=== PATIENT | male | born 1945 | race African-American/Black ===

== ENCOUNTER → 2018-01-24 | Outpatient (CLI) | payer OTHER ==
[~2018-01-24] MED LIST: HCTZ; NIFEDIPINE; PROTONIX40 MG PO; ZOCOR
--- NOTE | ~2018-01-24 | 2DMMODE ---
[facility] [place] [address] 2 D/M-MODE ECHOCARDIOGRAM Name: NIKOSNICOLA LOFTON Room #: REG CL [facility]#: [id number] Admission: 01/24/18 Attend Phys: Becca Heredia DNP Discharge: Date of : 45 Date of Service: 01/24/18 1146 Report #: [id number] THIS REPORT FOR: //name// APPROVED REPORT Study performed: 01/24/2018 09:17:59 EXAM: Comprehensive 2D, Doppler, and color-flow Echocardiogram Patient Location: Out-Patient Status: routine BSA: 2.06 HR: 58 bpm BP: 155/77 mmHg Rhythm: NSR Other Information Study Quality: Good Indications Murmur HTN 2D Dimensions IVSd: 13.80 (7-11mm) LVOT Diam: 21.90 (18-24mm) LVDd: 43.71 mm PWd: 14.22 (7-11mm) Ascending Ao: 29.55 (22-36mm) LVDs: 19.68 (25-40mm) Aortic Root: 30.67 mm Volumes Left Atrial Volume (Systole) Single Plane 4CH: 51.48 mL Single Plane 2CH: 52.44 mL LA ESV Index: 27.00 mL/m2 Aortic Valve AoV Peak Itz.: 3.18 m/s AO Peak Gr.: 40.50 mmHg LVOT Max P.11 mmHg AO Mean Gr.: 20.95 mmHg AO V2 Mean: 2.11 m/s LVOT Max V: 1.24 m/s AO V2 VTI: 65.34 cm KANDICE Vmax: 1.46 cm2 Mitral Valve E/A Ratio: 1.1 [facility] [place] [address] 2 D/M-MODE ECHOCARDIOGRAM Name: NICOLA KNOTT Room #: REG [facility]#: [id number] Admission: 01/24/18 Attend Phys: Becca Heredia DNP Discharge: Date of : 45 Date of Service: 01/24/18 1146 Report #: [id number] MV Decel. Time: 329.75 ms MV E Max Itz.: 0.97 m/s MV A Itz.: 0.87 m/s MV PHT: 95.63 ms IVRT: 87.66 ms Pulmonary Valve PV Peak Itz.: 1.01 m/s PV Peak Gr.: 4.08 mmHg Tricuspid Valve RAP Estimate: 5.00 mmHg Left Ventricle The left ventricle is normal size. There is normal LV segmental wall motion. Mild to moderate concentric left ventricular hypertrophy. The left ventricular systolic function is normal. LVEF is 65-70%. Grade II - pseudonormal filling dynamics. Right Ventricle The right ventricle is normal size. The right ventricular systolic function is normal. Atria The left atrium size is normal. The right atrium size is normal. Aortic Valve Aortic valve is moderately calcified. No aortic regurgitation is present. There is mild to moderate valvular aortic stenosis. Calculated aortic valve area is 1.5 cm2 with maximum pressure gradient of 41 mmHg and mean pressure gradient of 21 mmHg. Mitral Valve The mitral valve is normal in structure. Trace mitral regurgitation. No evidence of mitral valve stenosis. Tricuspid Valve The tricuspid valve is normal in structure. There is no tricuspid valve regurgitation noted. Unable to assess PA pressure. Pulmonic Valve The pulmonary valve is normal in structure. Trace pulmonic regurgitation. Great Vessels The aortic root is normal in size. The ascending aorta is normal in [facility] [address] [place] [address] 2 D/M-MODE ECHOCARDIOGRAM Name: NICOLA KNOTT Room #: REG CL [facility].#: [id number] Admission: 01/24/18 Attend Phys: Becca Heredia DNP Discharge: Date of : 45 Date of Service: 01/24/18 1146 Report #: [id number] size. IVC is normal in size and collapses >50% with inspiration. Pericardium There is no pericardial effusion. <Conclusion> The left ventricle is normal size. Mild to moderate concentric left ventricular hypertrophy. The left ventricular systolic function is normal. Grade II - pseudonormal filling dynamics. The right ventricle is normal size. The left atrium size is normal. There is mild to moderate valvular aortic stenosis. Trace mitral regurgitation. There is no tricuspid valve regurgitation noted. <ELECTRONICALLY SIGNED> By: Kodak Breen MD 01/24/18 1146 1146 1146 Kodak Breen MD /INF
== END ==
LOC: CV 09:03
DX: I51.7 Cardiomegaly (principal)

== ENCOUNTER 2018-04-24 18:34 | Inpatient (IN) | payer OTHER ==
[~2018-04-24] VITALS: Ht 170.2 cm; Wt 104.6 kg
[2018-04-24 18:34] VITALS: BP 147/82
[~2018-04-24 18:34] MED LIST changes: -HCTZ; +HYDROCHLOROTHIA25 M2 PO; -NIFEDIPINE; +PROCARDIA XL60 MG PO; -ZOCOR; +ZOCOR20 MG PO
[2018-04-24 19:59] LABS: ABSOLUTE NEUTROPHILS 10.3 thou/uL (1.4-8.2); BASOPHILS 0.5 % (0.0-2.0); EOSINOPHILS 0.1 % (0.0-3.0); HEMATOCRIT 50.2 % (42.0-52.0); HEMOGLOBIN 17.3 gm/dL (14.0-18.0); LYMPHOCYTES 7.1 % (24.0-44.0); MCH 27.7 pg (26.0-34.0); MCHC 34.4 g/dL (28.0-37.0); MCV 80.3 fL (80.0-100.0); MONOCYTES 5.5 % (1.0-8.0); PLATELET COUNT 256 thou/uL (150-400); POLYS 86.8 % (36.0-66.0); RBC 6.25 mil/uL (4.50-6.00); RDW 14.9 % (10.5-14.5); WBC 11.9 thou/uL (4.0-11.0)
[2018-04-24 20:07] LABS: CALCIUM 8.6 mg/dL (8.5-10.1); CREATININE 1.4 mg/dL (0.7-1.3)
[2018-04-24 20:10] LABS: POTASSIUM 2.9 mmol/L (3.5-5.1)
[2018-04-24 20:13] LABS: ALBUMIN 3.8 g/dL (3.4-5.0); TOTAL BILIRUBIN 0.4 mg/dL (<0.1-1.0); TOTAL PROTEIN 7.9 g/dL (6.4-8.2)
[2018-04-24 20:16] LABS: URINE CLARITY CLEAR; URINE COLOR YELLOW; URINE PROTEIN (DIPSTICK) NEGATIVE (Negative); URINE SPECIFIC GRAVITY 1.025 (1.005-1.035)
[2018-04-24 20:17] LABS: URINE BILIRUBIN NEGATIVE (Negative); URINE BLOOD TRACE (Negative); URINE GLUCOSE-RANDOM* NEGATIVE (Negative); URINE KETONES NEGATIVE (Negative); URINE LEUKOCYTES-REFLEX NEGATIVE (Negative); URINE NITRITE-REFLEX NEGATIVE (Negative); URINE UROBILINOGEN 0.2 E.U./dl (0.2-1.0)
[2018-04-24 22:27] VITALS: BP 147/76
[2018-04-24 22:34] VITALS: BP 147/77
[2018-04-24] MEDS ORDERED: FLOMAX0.4 MG PO (23:01)
[2018-04-24] MEDS ORDERED: POTASSIUM20 PO (23:05)
[2018-04-24] MEDS ORDERED: OMEGA-31000 M1 PO (23:07)
[2018-04-25 04:03] LABS: CREATININE 1.1 mg/dL (0.7-1.3)
[2018-04-25 04:18] LABS: ALBUMIN 3.3 g/dL (3.4-5.0); DIRECT BILIRUBIN 0.1 mg/dL (<0.1-0.3); TOTAL BILIRUBIN 0.5 mg/dL (<0.1-1.0); TOTAL PROTEIN 6.5 g/dL (6.4-8.2)
[2018-04-25 04:40] LABS: POTASSIUM 2.9 mmol/L (3.5-5.1)
[2018-04-25 05:13] VITALS: BP 145/79
[2018-04-25 06:49] VITALS: BP 131/71
--- NOTE | 2018-04-25 10:05 | EKG ---
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 : 1945 Requested By: Cody Bautista Order Number: [id number] MD: Manan Hurtado Measurements Intervals [place] Rate: 106 P: -55 NM: 160 QRS: -15 QRSD: 150 T: -16 QT: 370 QTc: 492 Interpretive Statements Sinus tachycardia Right bundle branch block Compared to ECG 09/03/2010 05:05:10 No significant change was found Electronically Signed On 04-25-2018 10:05:13 SALES REPRESENTATIVE SUPERVISOR by Manan Hurtado [email or web address] <ELECTRONICALLY SIGNED> By: Manan Hurtado MD, MERGED WITH [facility] 04/25/18 1005 00 00 Manan Hurtado MD, FACC /EPI
[2018-04-25 10:58] VITALS: BP 124/72
[2018-04-25 16:15] VITALS: BP 135/67
[2018-04-25 20:59] VITALS: BP 135/60
[2018-04-26 04:04] LABS: ALBUMIN 3.2 g/dL (3.4-5.0); CALCIUM 8.3 mg/dL (8.5-10.1); CREATININE 1.1 mg/dL (0.7-1.3); PHOSPHORUS 3.3 mg/dL (2.5-4.9); POTASSIUM 3.5 mmol/L (3.5-5.1)
[2018-04-26 08:02] VITALS: BP 124/68
[2018-04-26 10:21] VITALS: BP 124/68
[2018-04-26 10:26] VITALS: BP 124/68
== END 2018-04-26 10:10 | disposition home or self-care (01) | DRG 682 ==
LOC: ER 18:34 → 2N 19:59 → EROBS 19:59 → 2N 22:14
PROVIDERS: Emergency Medicine; Nurse Practitioner Acute Care; ADMIT Hospitalist
DX: N17.9 Acute kidney failure, unspecified (principal); E43 Unspecified severe protein-calorie malnutrition; R65.10 Systemic inflammatory response syndrome (SIRS) of non-infectious origin without acute organ dysfunction; K52.9 Noninfective gastroenteritis and colitis, unspecified; I10 Essential (primary) hypertension; E87.6 Hypokalemia; E78.00 Pure hypercholesterolemia, unspecified; Z79.899 Other long term (current) drug therapy; Z82.49 Family history of ischemic heart disease and other diseases of the circulatory system; Z83.3 Family history of diabetes mellitus
CPT/HCPCS: 10081

== ENCOUNTER 2019-10-08 08:00 | Emergency (ER) | payer OTHER ==
[~2019-10-08] VITALS: Ht 167.6 cm; Wt 102.1 kg
[~2019-10-08 08:00] MED LIST changes: +FLOMAX0.4 MG PO; +OMEGA-31000 M1 PO; +POTASSIUM20 PO
[2019-10-08] MEDS ORDERED: METFORMIN HCL500 MG PO (08:18)
[2019-10-08] MEDS ORDERED: LOSARTAN POTAS100 MG PO (08:19)
[2019-10-08] MEDS ORDERED: LOPRESSOR50 MG PO (08:19)
[2019-10-08 09:01] LABS: ANION GAP 6 mmol/L (7-16); BUN 15 mg/dL (7-18); CHLORIDE 104 mmol/L (98-107); CO2 29 mmol/L (21-32); CREATININE 1.2 mg/dL (0.7-1.3); GLUCOSE 138 mg/dL (74-106); SODIUM 139 mmol/L (136-145)
[2019-10-08 09:02] LABS: POTASSIUM 3.5 mmol/L (3.5-5.1)
[2019-10-08 09:09] LABS: TROPONIN-I <0.06 ng/mL (<0.06)
[2019-10-08 09:48] LABS: ABSOLUTE NEUTROPHILS 5.2 thou/uL (1.4-8.2); EOSINOPHILS 2.6 % (0.0-3.0); HEMATOCRIT 48.1 % (42.0-52.0); HEMOGLOBIN 15.9 gm/dL (14.0-18.0); LYMPHOCYTES 24.4 % (24.0-44.0); MCH 27.4 pg (26.0-34.0); MCHC 33.1 g/dL (28.0-37.0); MCV 82.9 fL (80.0-100.0); MONOCYTES 10.9 % (1.0-8.0); PLATELET COUNT 233 thou/uL (150-400); POLYS 61.1 % (36.0-66.0); RDW 15.2 % (10.5-14.5); WBC 8.5 thou/uL (4.0-11.0)
[2019-10-08] MEDS ORDERED: CATAPRES0.1 MG PO (09:59)
[2019-10-08 10:13] VITALS: BP 167/71
[2019-10-08 10:25] LABS: URINE BILIRUBIN NEGATIVE (Negative); URINE BLOOD NEGATIVE (Negative); URINE CLARITY CLEAR; URINE COLOR YELLOW; URINE GLUCOSE-RANDOM* NEGATIVE (Negative); URINE KETONES NEGATIVE (Negative); URINE LEUKOCYTES-REFLEX NEGATIVE (Negative); URINE NITRITE-REFLEX NEGATIVE (Negative); URINE PROTEIN (DIPSTICK) NEGATIVE (Negative); URINE SPECIFIC GRAVITY 1.015 (1.005-1.035); URINE UROBILINOGEN 0.2 E.U./dl (0.2-1.0)
--- NOTE | 2019-10-09 08:37 | EKG ---
[facility] [place] [address] ELECTROCARDIOGRAM REPORT Name: NICOLA KNOTT Room #: DEP [facility].#: [id number] Admission: 10/08/19 Attend Phys: Discharge: 10/08/19 Date of : 45 Report #: [id number] THIS REPORT FOR: cc: Becca Heredia DNP, Mary E. DNP Lundgren, Craig H. 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
== END 2019-10-08 10:13 | disposition home or self-care (01) ==
LOC: ER 08:00
PROVIDERS: Emergency Medicine
DX: I10 Essential (primary) hypertension (principal); E78.5 Hyperlipidemia, unspecified; Z79.899 Other long term (current) drug therapy; Z87.891 Personal history of nicotine dependence

== ENCOUNTER 2019-10-12 11:13 | Emergency (ER) | payer OTHER ==
[~2019-10-12] VITALS: Ht 167.6 cm; Wt 102.1 kg
[~2019-10-12 11:13] MED LIST changes: +CATAPRES0.1 MG PO; +LOPRESSOR50 MG PO; +LOSARTAN POTAS100 MG PO; +METFORMIN HCL500 MG PO
[2019-10-12 12:12] VITALS: BP 186/77
== END 2019-10-12 12:12 | disposition home or self-care (01) ==
LOC: ER 11:13
DX: S40.022A Contusion of left upper arm, initial encounter (principal); I10 Essential (primary) hypertension; E78.00 Pure hypercholesterolemia, unspecified; Z79.899 Other long term (current) drug therapy; Z87.891 Personal history of nicotine dependence; X58.XXXA Exposure to other specified factors, initial encounter; Y93.89 Activity, other specified; Y92.89 Other specified places as the place of occurrence of the external cause; Y99.8 Other external cause status

== ENCOUNTER 2020-05-09 06:17 | Emergency (ER) | payer OTHER ==
[~2020-05-09] VITALS: Ht 167.6 cm; Wt 99.8 kg
[2020-05-09] MEDS ORDERED: FISH OIL 1,0001 EAC9 PO (06:32)
[2020-05-09 07:25] LABS: BE(vivo) 1.2 mmol/L (-2 to +3); HCO3 26.2 mmol/L (22.0-26.0); PO2 81.5 mmHg (80.0-100.0); pH 7.403 (7.360-7.450)
[2020-05-09 07:27] LABS: ABSOLUTE NEUTROPHILS 5.9 thou/uL (1.4-8.2); BASOPHILS 0.7 % (0.0-2.0); EOSINOPHILS 2.8 % (0.0-3.0); HEMATOCRIT 39.6 % (42.0-52.0); HEMOGLOBIN 12.7 gm/dL (14.0-18.0); LYMPHOCYTES 23.6 % (24.0-44.0); MCH 27.3 pg (26.0-34.0); MCHC 32.2 g/dL (28.0-37.0); MCV 84.9 fL (80.0-100.0); MONOCYTES 10.3 % (1.0-8.0); PLATELET COUNT 278 thou/uL (150-400); POLYS 62.6 % (36.0-66.0); RBC 4.66 mil/uL (4.50-6.00); RDW 14.7 % (10.5-14.5); WBC 9.4 thou/uL (4.0-11.0)
[2020-05-09 07:31] LABS: ANION GAP 11 mmol/L (7-16); BUN 26 mg/dL (7-18); CALCIUM 9.7 mg/dL (8.5-10.1); CHLORIDE 104 mmol/L (98-107); CO2 27 mmol/L (21-32); CREATININE 1.7 mg/dL (0.7-1.3); GLUCOSE 115 mg/dL (74-106); POTASSIUM 3.6 mmol/L (3.5-5.1); SODIUM 142 mmol/L (136-145)
[2020-05-09 07:42] LABS: ALBUMIN 4.1 g/dL (3.4-5.0); DIRECT BILIRUBIN < 0.1 mg/dL (<0.1-0.2); SGOT 24 U/L (15-37); SGPT 46 U/L (16-63); TOTAL BILIRUBIN 0.4 mg/dL (0.2-1.0); TOTAL PROTEIN 7.7 g/dL (6.4-8.2); TROPONIN-I <0.06 ng/mL (<0.06)
--- NOTE | 2020-05-09 07:44 | EKG ---
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 : 1945 Requested By: Doretha Anaya Order Number: [id number] MD: Manan Hurtado Measurements Intervals [place] Rate: 54 P: 35 MN: 199 QRS: 26 QRSD: 152 T: 24 QT: 470 QTc: 446 Interpretive Statements Sinus bradycardia Right bundle branch block Compared to ECG 10/08/2019 08:26:08 No significant changes found Electronically Signed On 05-09-2020 7:43:49 CYBER INCIDENT ANALYST by Manan Hurtado [email or web address] <ELECTRONICALLY SIGNED> By: Manan Hurtado MD, LOCATED WITHIN [facility] 05/09/20 0743 0725 0725 Manan Hurtado MD, FACC /EPI
[2020-05-09 08:12] VITALS: BP 137/56
== END 2020-05-09 08:21 | disposition home or self-care (01) ==
LOC: ER 06:17
PROVIDERS: Emergency Medicine
DX: R06.00 Dyspnea, unspecified (principal); R09.81 Nasal congestion; I10 Essential (primary) hypertension; E78.00 Pure hypercholesterolemia, unspecified; Z87.891 Personal history of nicotine dependence; Z79.899 Other long term (current) drug therapy; Z98.890 Other specified postprocedural states

== ENCOUNTER → 2020-07-18 | Outpatient (CLI) | payer OTHER ==
[~2020-07-18] MED LIST changes: +FISH OIL 1,0001 EAC9 PO
== END ==
LOC: LAB 14:27
PROVIDERS: ATTEND Surgery
DX: Z01.812 Encounter for preprocedural laboratory examination (principal); Z20.822 Contact with and (suspected) exposure to COVID-19

== ENCOUNTER 2020-07-23 07:25 | Observation (INO) | payer OTHER ==
[2020-07-23] VITALS (9 sets, daily range): BP systolic 127–152; BP diastolic 51–74
[~2020-07-23] VITALS: Ht 167.6 cm; Wt 100.2 kg
--- NOTE | ~2020-07-23 | O ---
[facility] [place] [address] OPERATIVE REPORT Name: NICOLA KNOTT Room #: 150-3 ADM IN M.R.#: [id number] Admission: 07/23/20 Attend Phys: Arturo Tyler MD Discharge: Date of : 45 Report #: [id number] THIS REPORT FOR: cc: Becca Heredia DNP, Mary E. DNP Joseph, Sigi P. MD ~ DATE OF SERVICE: 07/23/2020 PREOPERATIVE DIAGNOSES: 1. Morbid obesity. 2. Hypertension. 3. Type 2 diabetes. 4. Hyperlipidemia. 5. Gastroesophageal reflux disease. POSTOPERATIVE DIAGNOSES: 1. Morbid obesity. 2. Hypertension. 3. Hyperlipidemia. 4. Type 2 diabetes. 5. Gastroesophageal reflux disease. 6. Hiatal hernia. OPERATIVE PROCEDURES DONE: 1. Laparoscopic vertical sleeve gastrectomy. 2. Repair of hiatal hernia. OPERATING SURGEON: Arturo Tyler MD INDICATIONS FOR THE OPERATIVE FINDINGS: The patient was noted to have a 3 cm size hiatal hernia and the air leak test was negative. INDICATIONS FOR THE PROCEDURE: The patient is a 75-year-old male who presented with features of morbid obesity, was noted to have a weight of 105 kilograms with a BMI of 37 with the above listed comorbidities. The patient was advised laparoscopic vertical sleeve gastrectomy and possible hiatal hernia repair. The patient showed understanding and agreed to proceed. DESCRIPTION OF PROCEDURE: After explaining to the patient in detail and informed consent was obtained, the patient was identified in the preoperative holding area. The patient was transferred to the operating room and was placed in supine position. Sequential compressive devices were placed for DVT prophylaxis. Preoperative antibiotics were given. After induction of anesthesia, the abdomen was prepped and draped in a sterile fashion. Through right left upper quadrant 1 cm incision and using Optiview technique, peritoneal [facility] [address] [place] [address] OPERATIVE REPORT Name: NIKOSNICOLA LOFTON Room #: 150-3 ADM IN M.R.#: [id number] Admission: 07/23/20 Attend Phys: Arturo Tyler MD Discharge: Date of : 45 Report #: [id number] cavity was entered and pneumoperitoneum was created. Thereafter, under direct vision, another 5 mm trocar was placed in the left mid abdomen, another 12 mm trocar was placed in the right mid abdomen, another 5 mm trocar was placed in the right subcostal region and through a 1 cm incision in the epigastrium, a Dante retractor was introduced and the left lobe of the liver was retracted. Upon initial inspection, the patient was noted to have a 3 cm size hiatal hernia. I started to take down the gastroepiploic vessel using EnSeal. This was continued superiorly. The short gastric vessels were taken down. The gastrophrenic ligament was divided and the angle of His was mobilized. The stomach appeared to be large and very elongated. Distally, the gastroepiploic vessels were taken down up to about 4 cm proximal to the pylorus. At this point, using pars flaccida technique flaccida, the right kathy was identified. The sac was gently dissected off the right kathy using initially with hook electrocautery and then with the EnSeal. I continued dissection anteriorly, continued to mobilize the distal esophagus from the left kathy. I then did a posterior dissection to complete the circumferential dissection, I ensured there was adequate length of the esophagus within the abdomen. I then performed the anterior cruroplasty with a [id number] Ethibond suture. I then placed a 36-Macedonian ViSiGi tube inserted into the stomach and stomach was suctioned out. This was placed along the lesser curve of the stomach. Stomach was then divided in a vertical fashion with multiple Endo-LESLY [place] stapler, 2 green loads and multiple gold loads were used to divide the stomach in a vertical fashion to create a loose sleeve around the 36-Macedonian bougie. An air leak test was performed by insufflation of the stomach and by irrigation of fluid along the staple line. There was no leak that was noted. Absolute hemostasis was ensured. Thorough saline irrigation was given. The sleeve gastrectomy specimen and the Dante retractor was removed. Approximately about 10 mL of lidocaine and Marcaine mix was instilled under the left hemidiaphragm. The abdomen was then desufflated. Incisions were then closed with 4-0 Monocryl. The 12 mm port site incision was closed with 0 Vicryl for the fascia. Skin was closed with 4-0 Monocryl for all the incisions. Dermabond was applied. The patient was stable at the end of the procedure. The patient was awoken from anesthesia and was transferred to the recovery room in stable condition. ESTIMATED BLOOD LOSS: 20 mL. CONDITION OF THE PATIENT: Stable. FLUIDS GIVEN: Per anesthesia notes. SPECIMEN SENT: Sleeve gastrectomy specimen. COMPLICATIONS: None. [facility] [address] [place] [address] OPERATIVE REPORT Name: NICOLA KNOTT Room #: 150-3 [facility] IN M.R.#: [id number] Admission: 07/23/20 Attend Phys: Arturo Tyler MD Discharge: Date of : 45 Report #: [id number] ANESTHESIA: General anesthesia. By: 1110 1147 Arturo Tyler MD /nt
[~2020-07-23 07:25] MED LIST changes: +AMLODIPINE BESY10 MG PO; +METOPROLOL TART25 MG PO; +TRIAMTERENE-HC1 EAC3 PO
[2020-07-23 08:31] LABS: HEMATOCRIT 41.2 % (42.0-52.0); HEMOGLOBIN 13.3 gm/dL (14.0-18.0); MCH 27.4 pg (26.0-34.0); MCHC 32.4 g/dL (28.0-37.0); MCV 84.8 fL (80.0-100.0); RBC 4.86 mil/uL (4.50-6.00); RDW 13.6 % (10.5-14.5); WBC 8.7 thou/uL (4.0-11.0)
[2020-07-23 08:40] LABS: CALCIUM 9.7 mg/dL (8.5-10.1); CREATININE 2.2 mg/dL (0.7-1.3); POTASSIUM 3.5 mmol/L (3.5-5.1)
[2020-07-23 08:44] LABS: ALBUMIN 4.4 g/dL (3.4-5.0); TOTAL BILIRUBIN 0.5 mg/dL (0.2-1.0); TOTAL PROTEIN 8.2 g/dL (6.4-8.2)
--- NOTE | 2020-07-23 18:38 | NUR ---
PT A&OX4, VSS, DENIES PAIN/NAUSEA. PATIENT RESTING IN BED AND TOLERATING CLEAR LIQUID DIET. PATIENT ON 2L OF OXYGEN, DOESNT WEAR OXYGEN AT HOME BUT USES CPAP MACHINE. ABDOMEN HAS LAP SITES WITH DERMABOND, NO DRAINAGE. PATIENT MED SURG TELE, SINUS RHYTHM AND BBB. NO SIGNS OF DISTRESS. WILL CONTINUE TO MONITOR.
--- NOTE | 2020-07-24 02:03 | NUR ---
PT CARE ASSUMED WITH PT IN BED WATCHING TV.PT IS A/O X4.PT IS MENTASTA WITH NO HEARING AID.PT IS UP WITH STANDBY ASSIST TO BATHROOM AND ALSO USES URINAL.PT C/O PAIN AND PAIN MANAGED WITH MORPHINE.4 LAP SITE C/D/I WITH DERMABAND.PT IS ON ROOM AIR AND WEARS CPAP AT NIGHT.PT IS ACCUCHECK ACHS.WILL CONTINUE TO MONITOR
[2020-07-24 02:06] LABS: GLYCOHEMOGLOBIN (HGB A1C) 6.2 % (4.8-5.6)
[2020-07-24 05:32] VITALS: BP 142/65
[2020-07-24 08:51] VITALS: BP 138/61
[2020-07-24] MEDS ORDERED: HYDROCODONE-ACE15 ML PO (09:29)
[2020-07-24] MEDS ORDERED: ONDANSETRON HCL4 M2 PO (09:29)
--- NOTE | 2020-07-24 11:14 | NUR ---
PT ADMITTED RELATED TO LAP SLEEVE GASTRECTOMY. CM REVIEWED CHART AND SPOKE WITH CARE TEAM. CM MET WITH PT AT BEDSIDE THIS DAY. PT APPEARED TO BE A&O X4 ALTHOUGH IQUGMIUT. PT INDICATED HE LIVES IN INDEPENDENT LIVING APARTMENT AT [facility] 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 PT INDICATED NO DME OR HH HX. PT INDICATED HE PLANS TO RETURN BACK TO HIS [facility] APARTMETN AT [facility] ONCE MEDICALLY STABLE. HE INDICATED THAT [facility] WILL BE ABLE TO PROVIDE TRANSPORT HOME. IT IS ANTIPATED THAT PT WILL BE ABLE TO RETURN HOME TO SELF CARE ONCE MEDICALLY STABLE. CM FOLLOWING SHOULD ANY DC NEEDS ARISE.
--- NOTE | 2020-07-24 12:06 | NUR ---
ASSUMED PT CARE THIS AM. PT VSS, A&OX4. PATIENT IS PLEASANT AND COOPERATIVE WITH STAFF. LAP SITES ARE INTACT. REPORTS PAIN WITH MOVEMENT BUT HAS NOT REQUESTED ANY PAIN MEDS. PATIENT REMAINS CONTINENT AND AMBULATES TO THE BATHROOM. PATIENT HAS BEEN AMBULATING AROUND UNIT EVERY TWO HOURS WELL. SCD'S ARE IN PLACE. IV PATENT, FLUIDS INFUSING. REMIANS ON TELEMETRY. MEDS GIVEN WITHOUT ISSUE THIS MORNING. FALL PRECAUTIONS ARE IN PALCE.
[2020-07-24 18:04] VITALS: BP 138/61
--- NOTE | 2020-07-25 19:07 | PATH ---
[facility] [address] [place] [address] PATHOLOGY RPT PROCEDURE Name: PRAFUL MELVIN Room #: 464-P YOGESH Lowe#: [id number] Admission: 07/23/20 Date of : 45 Discharge: 07/24/20 Report #: [id number] Path Case #: [id number] [facility] Accession Number: [id number] . 01 Material submitted: . stomach - PARTIAL STOMACH . 01 Clinical history: . LAPAROSCOPIC SLEEVE GASTRECTOMY (+++ MORBID OBESITY . 02 Diagnosis: Stomach, partial stomach, laparoscopic sleeve gastrectomy: - Mild chronic active gastritis with occasional lymphoid aggregates. (IUV:bandar; 07/24/2020) QMS 07/24/2020 1440 Local . 02 Comment: Helicobacter pylori immunohistochemical stain is performed on block A1 due to the findings and the results of this will be reported in an addendum to follow. (IUV:bandar; 07/24/2020) . 02 Addendum: . Properly controlled Helicobacter pylori immunohistochemical stain is performed on block A1 and it shows numerous Helicobacter pylori organisms present. Based on the immunohistochemical stain, the originally rendered diagnosis is refined as follows: . 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 (IUV:pit 07/25/2020) . Professional services performed by [facility] at [facility], [address] [place], [place] [address], [place] [address]. Technical services performed by [facility] [employer] at [address] [place] [address], [address], [place] [address]. MBR/07/25/2020 Addendum Electronically Signed by Carmen Liu MD, Pathologist . 02 Electronically signed: . Carmen Liu MD, Pathologist NPI- [id number] . 01 Gross description: . The specimen is received in formalin, labeled "Praful Melvin, partial stomach". Received is a partial gastrectomy specimen with a stapled [facility] [address] [place] [address] PATHOLOGY RPT PROCEDURE Name: PRAFUL MELVIN Room #: 464-P YOGESH [facility]#: [id number] Admission: 07/23/20 Date of : 45 Discharge: 07/24/20 Report #: [id number] Path Case #: [id number] margin of resection measuring 24.2 x 4.4 x 3.1 cm in greatest dimensions. The serosal surface is pink-jon and glistening to ragged in appearance. The specimen is opened to reveal pink-jon mucosa with moderate rugal folds. No distinct nodules or lesions are noted grossly. The specimen is submitted representatively in cassette A1. (CAA; 07/23/2020) QA/QA 07/23/2020 1833 Local . 02 Pathologist provided ICD-10: K29.50 . 02 CPT . 359797, [id number] Specimen Comment: A courtesy copy of this report has been sent to [phone], [phone] Specimen Comment: [phone] Specimen Comment: Report sent to / DR BRANHAM Performed at: [address], [place] [id number] MD Markos Zapata MD Phone: [phone] Performed at: [address] [id number] MD Carmen Liu MD Phone: [phone]
== END 2020-07-24 19:30 | disposition home or self-care (01) ==
LOC: TBA 07:25 → 4W 07:25 → TBA 07:25 → PRE 10:45 → 4W 14:20
PROVIDERS: ADMIT Surgery; ATTEND Surgery
DX: E66.01 Morbid (severe) obesity due to excess calories (principal); I10 Essential (primary) hypertension; E78.5 Hyperlipidemia, unspecified; E11.9 Type 2 diabetes mellitus without complications; K21.9 Gastro-esophageal reflux disease without esophagitis; K44.9 Diaphragmatic hernia without obstruction or gangrene; G47.30 Sleep apnea, unspecified; Z79.84 Long term (current) use of oral hypoglycemic drugs; Z79.899 Other long term (current) drug therapy; Z68.35 Body mass index [BMI] 35.0-35.9, adult
CPT/HCPCS: 10045; 50010; 50101; 50222; 50386; 50555; 50558; 50739; 50740; 50804; 51489; 52265; 52266; 53307; 54022; 54118; 55326; 56462; 56525; 56526; 57092; 58574; 58587; 58588; 62110; 62900; 70005